=== PATIENT | female | born 1985 | race American Indian/Alaskan Native ===

== ENCOUNTER 2016-10-26 07:04 | Day surgery (SDC) | payer BC ==
--- NOTE | 2016-10-25 13:48 | Short Stay Summary ---
Short Stay Documentation Date of service: 10/26/16 Narrative H&P: 30-year-old female with recurrent tonsillitis for removal of tonsils and adenoids. More than 3 episodes in less than 6 months Hypothyroid. Hypoglycemia. Patient has been reassessed/reevaluated/re-examined. H&P has been reviewed. No interval changes.812. 10/26/16 - History Past Medical History: hypothyroidism Past Surgical History: No surgical history Social history: , lives with family - Allergies and Medications Current Medications: Allergies azithromycin Allergy (Verified 09/28/16 15:19) facial swelling Home Medications Medication Instructions Recorded Confirmed Last Taken Type Levothyroxine [Synthroid] 50 mcg PO QAM 09/28/16 09/28/16 Unknown History Venlafaxine [Effexor 25mg tab] 25 mg PO DAILY 09/28/16 09/28/16 Unknown History - Physical exam General appearance: no acute distress Integumentary: no rash HEENT: Other (moderate-sized tonsils and adenoids) Lungs: Clear to auscultation Breasts: deferred Heart: Regular rate, No murmurs Gastrointestinal: normoactive bowel sounds Female Genitourinary: deferred Rectal Exam: deferred Extremities: pulses intact, pulses symmetrical, No edema Neurological: Normal gait, Normal speech - Brief post op/procedure progress note Date of procedure: 10/26/16 Pre-op diagnosis: recurrent tonsillitis Post-op diagnosis: same Procedure: T&A Under satisfactory general anesthesia the oral pharynx was examined. The tonsils were large. 2% Xylocaine 1-100,000 adrenaline was injected submucosally in the superior poles bilaterally. Approximately 2 mL was utilized. The nasopharynx was examined. The adenoids were large. They were removed by the Miroi microdebrider. Both tonsils were then removed by sharp dissection and electrocautery. Hemostasis was obtained with packing and electrocautery. After achieving complete hemostasis the procedure was terminated. The patient tolerated it well. Anesthesia: GETA Findings: Large tonsils and adenoids Surgeon: WILLOW GARLAND Estimated blood loss: minimal Pathology: list (tonsils and adenoids) Specimen disposition: to lab Condition: stable - Hospital course Hospital course: Oropharynx clear. No bleeding 929. 10/26/16 - Disposition Condition at discharge: Good Disposition: DC- TO HOME OR SELFCARE Short Stay Discharge Plan Follow up with: JOO BEDOYA [Other] - 7 Days
--- NOTE | 2016-10-26 07:15 | Anesthesia Day of Surgery ---
Anesthesia Day of Surgery - Day of Surgery Patient Examined: Yes Patient H&P Reviewed: Yes Patient is NPO: Yes
--- NOTE | 2016-10-26 07:15 | Anesthesia Consultation ---
Anesthesia Consult and Med Hx Date of service: 10/26/16 - Airway Anesthetic Teeth Evaluation: Good ROM Head & Neck: Adequate Mental/Hyoid Distance: Adequate Mallampati Class: Class II Intubation Access Assessment: Probably Good - Pulmonary Exam CTA: Yes - Cardiac Exam Cardiac Exam: RRR - Pre-Operative Health Status ASA Pre-Surgery Classification: ASA2 Proposed Anesthetic Plan: General - Central Nervous System Hx Psychiatric Problems: Yes (depression) - Endocrine Hx Hypothyroidism: Yes - Other Systems Hx Alcohol Use: Yes (occas) Hx Cancer: No
[2016-10-26] MEDS ORDERED: XYLOCAINE 2%/ EPI 1:200,000 INFILTRATI ONE (07:50)
[2016-10-26] MEDS ORDERED: ANTIBIOTIC OINT TP ONE (07:51)
[2016-10-26] MEDS ORDERED: NACL 0.9% 500 ML 500 ML ONE (07:51)
[2016-10-26] MEDS ORDERED: AFRIN ONE (07:51)
[2016-10-26] MEDS ORDERED: PERCOCET 5/325 PO PRN (08:00)
[2016-10-26] MEDS ORDERED: VERSED IV NR (08:00)
[2016-10-26] MEDS ORDERED: PEPCID PO NR (08:00)
[2016-10-26] MEDS ORDERED: LACTATED RINGERS 1,000 ML IV SCH (08:00)
[2016-10-26] MEDS ORDERED: NACL BACTERIOSTATIC INFILTRATI ONE (08:10)
[2016-10-26] MEDS ORDERED: XYLOCAINE MPF 2% ONE (08:35)
[2016-10-26] MEDS ORDERED: QUELICIN ONE (08:35)
[2016-10-26] MEDS ORDERED: DIPRIVAN 10 MG/ML IV ONE (08:36)
[2016-10-26] MEDS ORDERED: SUBLIMAZE ONE (08:36)
[2016-10-26] MEDS ORDERED: NACL 0.9% 500 ML IRRIGATION ONE (08:54)
[2016-10-26] MEDS ORDERED: XYLOCAINE 2%/EPI 1:100,000 INFILTRATI ONE (08:54)
[2016-10-26] MEDS ORDERED: DECADRON ONE (08:55)
[2016-10-26] MEDS ORDERED: AFRIN NS ONE (08:55)
[2016-10-26] MEDS ORDERED: NACL 0.9% IR ONE (08:55)
[2016-10-26] MEDS ORDERED: ZOFRAN ONE ×2 (09:02→11:47)
[2016-10-26] MEDS ORDERED: DILAUDID ONE (09:02)
[2016-10-26] MEDS ORDERED: TYLENOL PO PRN (09:21)
[2016-10-26] MEDS ORDERED: MORPHINE PO PRN (09:21)
--- NOTE | 2016-10-26 09:26 | Post Anesthesia Evaluation ---
- Post Anesthesia Evaluation Patient Participated: Yes Airway Patent: Yes Stable Respiratory Function: Yes Nausea/Vomiting: No Temp > 96.8F: Yes Pain Manageable: Yes Adequeate Hydration: Yes Anesthesia Complications: No Block Receding Appropriately: Not Applicable Patient on Ventilator: No
[2016-10-26] MEDS: DILAUDID IV PRN ×6 (09:50→12:00)
[2016-10-26] MEDS ORDERED: D5LR 1,000 ML IV SCH (10:00)
[2016-10-26] MEDS ORDERED: ZOFRAN IV PRN (12:00)
[2016-10-26 12:45] VITALS: BP 115/68
== END 2016-10-26 13:00 | disposition home or self-care (01) ==
LOC: OR 07:04
PROVIDERS: ATTEND Otolaryngology
DX: J03.91 Acute recurrent tonsillitis, unspecified (principal); E03.9 Hypothyroidism, unspecified; F32.9 Major depressive disorder, single episode, unspecified; Z88.1 Allergy status to other antibiotic agents; Z79.899 Other long term (current) drug therapy; Z72.89 Other problems related to lifestyle
CPT/HCPCS: 42821; 82962; 88304; J0330; J1100; J1170; J2250; J2405; J2704; J3010; J7040; J7120